=== PATIENT | female | born 1940 | race African-American/Black ===

== ENCOUNTER 2016-08-25 09:50 | Emergency (ER) | payer OTHER, MEDICAID ==
[~2016-08-25] VITALS: Ht 167.6 cm; Wt 72.0 kg
[~2016-08-25 09:50] MED LIST: ALEN70TA13 PO; DILT240C92 PO; FOLI1CAP6 PO; LATA2.5D2 EACHEYE; SEVE800T8 PO
[2016-08-25] MEDS ORDERED: TRAMADOL 50MG TABLET PO ONE (10:15)
[2016-08-25 11:22] LABS: HEMATOCRIT. 35.2 % (36.0-48.0); HEMOGLOBIN. 11.2 g/dL (12.0-16.0); MEAN CORPUSCULAR HEMOGLOBIN 30.2 pg (28.0-32.0); MEAN CORPUSCULAR HGB CONC 31.7 g/dL (31.0-37.0); PLATELET 121 x1000/uL (130-400); RED CELL DISTRIBUTION WIDTH 17.8 % (11.6-14.6)
[2016-08-25 11:25] LABS: DIFFERENTIAL COMMENT 1
[2016-08-25 11:31] LABS: ALANINE AMINOTRANSFERASE 20 IU/L (13-61); ALBUMIN 2.5 g/dL (3.4-5.0); ANION GAP 16; CALCIUM 7.5 mg/dL (8.5-10.1); CARBON DIOXIDE 29 mEq/L (21-32); CHLORIDE 92 mEq/L (98-107); INDEX HEMOLYSI 1 (1-3); INDEX ICTERIC 1 (1-4); INDEX LIPEMIC 1 (1-3); UREA NITROGEN BLOOD 48 mg/dL (7-21); eGFR 6 mL/min (>60)
[2016-08-25 11:39] LABS: ANISOCYTOSIS 1+; PLATELET ESTIMATE SLIGHTLY DECREASED
[2016-08-25 16:05] VITALS: BP 132/91
== END 2016-08-25 16:21 | disposition home or self-care (01) ==
LOC: ER 10:50
DX: M25.551 Pain in right hip (principal); N18.6 End stage renal disease; I12.0 Hypertensive chronic kidney disease with stage 5 chronic kidney disease or end stage renal disease; I48.91 Unspecified atrial fibrillation; Z99.2 Dependence on renal dialysis; W19.XXXA Unspecified fall, initial encounter; Y93.89 Activity, other specified; Y99.8 Other external cause status; Y92.89 Other specified places as the place of occurrence of the external cause
CPT/HCPCS: 36415; 71010; 73502; 80053; 85025; 93005; 99285